=== PATIENT | female | born 1960 | race Caucasian/White ===

== ENCOUNTER → 2023-04-16 | Outpatient (CLI) | payer OTHER | LOC: RAD 14:33 | DX: M19.011 Primary osteoarthritis, right shoulder (principal) ==

== ENCOUNTER → 2023-05-21 | Outpatient (CLI) | payer OTHER | LOC: LAB 15:33 | DX: E55.9 Vitamin D deficiency, unspecified (principal); M54.06 Panniculitis affecting regions of neck and back, lumbar region; F32.A Depression, unspecified; E03.9 Hypothyroidism, unspecified; M62.838 Other muscle spasm ==

== ENCOUNTER → 2023-07-21 | Outpatient (CLI) | payer OTHER | LOC: RAD 14:08 | DX: M51.34 Other intervertebral disc degeneration, thoracic region (principal); M51.36 Other intervertebral disc degeneration, lumbar region; M47.816 Spondylosis without myelopathy or radiculopathy, lumbar region; Z98.1 Arthrodesis status; M54.06 Panniculitis affecting regions of neck and back, lumbar region ==

== ENCOUNTER 2024-08-30 16:36 | Emergency (ER) | payer MEDICARE ==
[~2024-08-30] VITALS: Ht 182.9 cm; Wt 109.1 kg
[2024-08-30] MEDS ORDERED: DULOXETINE60 MG PO (16:49)
[2024-08-30] MEDS ORDERED: CYCLOBENZAPRINE10 M1 PO (16:50)
[2024-08-30] MEDS ORDERED: HYDROCHLOROTHIA1 T14 PO (16:50)
[2024-08-30] MEDS ORDERED: LEVOTHYROXINE100 MC1 PO (16:50)
[2024-08-30] MEDS ORDERED: ACETAMINOPHEN-H1 TA2 PO (16:50)
[2024-08-30] MEDS ORDERED: NS 1,000 ML IV SCH ×2 (17:00→18:45)
[2024-08-30 17:02] LABS: BASO # 0.04 K/mm3 (0.02-0.10); EOS # 0.69 K/mm3 (0.04-0.40); EOS % 6.5 % (1.0-5.0); HEMATOCRIT 34.9 % (37.0-47.0); HEMOGLOBIN 11.2 g/dL (12.5-16.0); LYMPH# 2.51 K/mm3 (1.50-4.00); MEAN CELL VOLUME 98 fl (78-100); MEAN CORPUSCULAR HEMOGLOBIN 31 pg (27-31); MEAN CORPUSCULAR HGB CONC 32 g/dL (33-37); MONO # 0.87 K/mm3 (0.20-0.80); NEU # 6.44 K/mm3 (1.40-6.50); PLATELET COUNT 410 K/mm3 (130-400); RED BLOOD COUNT 3.58 M/mm3 (4.10-5.30); RED CELL DISTRIBUTION WIDTH 12.7 % (11.5-14.5); WHITE BLOOD COUNT 10.6 K/mm3 (4.8-10.8)
[2024-08-30 17:21] LABS: PROTHROMBIN TIME 9.9 SECONDS (9.0-12.0)
[2024-08-30 17:43] LABS: ALBUMIN 3.9 g/dL (3.4-4.8); SODIUM 136 mmol/L (136-145)
[2024-08-30 17:45] LABS: CALCIUM 9.4 mg/dL (8.3-10.5)
[2024-08-30 17:46] LABS: GLUCOSE 89 mg/dL (65-105); TOTAL PROTEIN 6.7 g/dL (6.2-8.1)
[2024-08-30 17:47] LABS: CARBON DIOXIDE 23 mmol/L (23-31)
[2024-08-30 17:48] LABS: TOTAL BILIRUBIN 0.3 mg/dL (0.2-1.2)
[2024-08-30 17:51] LABS: AST-SGOT 24 U/L (5-34)
[2024-08-30 17:52] LABS: ALT/SGPT 13 U/L (0-55)
[2024-08-30 17:58] LABS: TROPONIN-I < 0.030 ng/mL (0.00-0.033)
[2024-08-30 18:05] LABS: URINE APPEARANCE SLIGHTLY CLOUDY (CLEAR); URINE COLOR YELLOW (YELLOW)
[2024-08-30 18:08] LABS: URINE BILIRUBIN NEGATIVE (NEGATIVE); URINE GLUCOSE NEGATIVE (NEGATIVE); URINE KETONE NEGATIVE (NEGATIVE); URINE PROTEIN(semi-quant) NEGATIVE (NEGATIVE)
[2024-08-30 18:09] LABS: URINE BLOOD NEGATIVE (NEGATIVE); URINE LEUKOCYTE ESTERASE TRACE (NEGATIVE); URINE NITRATE NEGATIVE (NEGATIVE)
[2024-08-30] MEDS ORDERED: DIFLUCAN100 M1 PO (18:42)
[2024-08-30] MEDS ORDERED: MACROBID 100 M100 MG PO (18:42)
[2024-08-30] MEDS ORDERED: cefTRIAXone 1 G in Water For Injection,Sterile 10 ML IV ONE (18:45)
[2024-08-30 19:56] VITALS: BP 116/66
== END 2024-08-30 19:58 | disposition home or self-care (01) ==
LOC: ED 16:36
PROVIDERS: Family Medicine
DX: R41.82 Altered mental status, unspecified (principal); I10 Essential (primary) hypertension; E66.9 Obesity, unspecified; Z68.32 Body mass index [BMI] 32.0-32.9, adult
CPT/HCPCS: J0696; J7030

== ENCOUNTER → 2024-09-07 | Outpatient (CLI) | payer MEDICARE ==
[~2024-09-07] MED LIST: ACETAMINOPHEN-H1 TA2 PO; CYCLOBENZAPRINE10 M1 PO; DIFLUCAN100 M1 PO; DULOXETINE60 MG PO; HYDROCHLOROTHIA1 T14 PO; LEVOTHYROXINE100 MC1 PO; MACROBID 100 M100 MG PO
[2024-09-07 17:28] LABS: ALBUMIN 4.3 g/dL (3.4-4.8)
[2024-09-07 17:30] LABS: CALCIUM 10.3 mg/dL (8.3-10.5)
[2024-09-07 17:31] LABS: TOTAL PROTEIN 7.6 g/dL (6.2-8.1)
[2024-09-07 18:05] LABS: TOTAL BILIRUBIN 0.3 mg/dL (0.2-1.2)
[2024-09-07 18:55] LABS: URINE APPEARANCE CLOUDY (CLEAR); URINE BILIRUBIN NEGATIVE (NEGATIVE); URINE COLOR YELLOW (YELLOW); URINE GLUCOSE NEGATIVE (NEGATIVE); URINE KETONE NEGATIVE (NEGATIVE); URINE NITRATE NEGATIVE (NEGATIVE); URINE PROTEIN(semi-quant) NEGATIVE (NEGATIVE)
[2024-09-07 18:56] LABS: URINE BLOOD TRACE-INTACT (NEGATIVE); URINE LEUKOCYTE ESTERASE 1+ (NEGATIVE); URINE WBC 31-50 /hpf (0-3)
== END ==
LOC: LAB 16:45
PROVIDERS: Nurse Practitioner
DX: R79.89 Other specified abnormal findings of blood chemistry (principal); R74.8 Abnormal levels of other serum enzymes; Z87.440 Personal history of urinary (tract) infections